=== PATIENT | female | born 1995 | race Caucasian/White ===

== ENCOUNTER → 2019-04-02 | Outpatient (CLI) | payer OTHER ==
--- NOTE | 2019-04-02 15:07 | Diagnostic Imaging Report ---
INDICATION: Anatomy survey. TECHNIQUE: Multiple real-time grayscale images were obtained over the gravid uterus. COMPARISON: None. FINDINGS: Single live intrauterine in the cephalic presentation. Placenta is posteriorly located and there are no features of previa. Due to advanced gestational age, the maternal adnexa are suboptimally visualized. Cervix is closed and measures 3.8 cm in length. anatomy survey shows the following structures to be normal: Stomach, kidneys, urinary bladder, umbilical cord insertion, three-vessel cord, spine, cerebral ventricles, cerebellum, cisterna magna, three-vessel cord, and all four extremities. A four-chamber heart is not well visualized on today's examination due to positioning. Biometrical measurements are as follows: Biparietal 4.49 cm, age 19 weeks 5 days. Head circumference 16.61 cm, age 19 weeks 3 days. Abdominal circumference 13.69 cm, age 19 weeks 1 days. Femur length 2.93 cm, age 19 weeks 1 days. Sonographic estimate age: 19 weeks 3 days. Sonographic estimated date of delivery: 08/24/19. Estimated Weight: 275 gm (+/- 40 gm). LMP percentile: 70%. heart rate: 138 beats per minute. number: 1 of 1. IMPRESSION: 1. Single live intrauterine . 2. anatomy survey is normal with the exception of suboptimal visualization of the four-chamber heart. Consider short-term followup targeted ultrasound to better assess the heart. 3. Gestational age by today's ultrasound is concurrent with gestational age by first ultrasound. Dictated by: Dictated on workstation # [id number]
== END ==
LOC: RAD 10:14
PROVIDERS: ATTEND Obstetrics & Gynecology
DX: Z36.89 Encounter for other specified antenatal screening (principal); Z3A.19 19 weeks gestation of pregnancy
CPT/HCPCS: 76805

== ENCOUNTER 2019-08-19 18:30 | Inpatient (IN) | payer OTHER ==
[2019-08-19] VITALS (7 sets, daily range): BP systolic 100–123; BP diastolic 54–83
[~2019-08-19] VITALS: Ht 162.6 cm; Wt 81.5 kg
--- NOTE | 2019-08-19 18:35 | NUR ---
KOBY RUIZ presented to unit ambulatory from home, accompanied by , for INDUCTION. 38 4/7 wks gestation,Oligohydramnios. KOBY RUIZ weighed, gowned, voided, and to bed. EFHM and TOCO applied, VS taken. KOBY RUIZ oriented to bed controls, call light, TV, heat, and A/C controls. at bedside. call light with in reach.
--- NOTE | 2019-08-19 18:40 | NUR ---
To room 320.
[2019-08-19] MEDS ORDERED: MINERAL OIL CONCENTRATE 99.9% 15 ML UDC TOP PRN (19:30)
[2019-08-19] MEDS ORDERED: NS IV 500 ML 500 ML IV ONE (19:30)
[2019-08-19] MEDS ORDERED: MISOPROSTOL 100 MCG (CYTOTEC) TAB PO ONE (19:30)
[2019-08-19] MEDS: D5 LR IV SOLUTION 1,000 ML IV SCH (19:58)
[2019-08-19 20:12] LABS: BASOPHILS % (AUTO) 0 % (0-10); EOSINOPHILS # (AUTO) 0.1 10^3/uL (0.0-0.3); EOSINOPHILS % (AUTO) 2 % (0-10); HEMATOCRIT 33 % (35-52); HEMOGLOBIN 11.5 G/DL (11.5-16.0); LYMPHOCYTES # (AUTO) 2.2 X 10^3 (1.0-4.0); LYMPHOCYTES % (AUTO) 24 % (12-44); MEAN CORPUSCULAR HEMOGLOBIN 31 PG (25-34); MEAN CORPUSCULAR HGB CONC 34 G/DL (32-36); MEAN CORPUSCULAR VOLUME 90 FL (80-99); MEAN PLATELET VOLUME 10.2 FL (7.4-10.4); MONOCYTES # (AUTO) 0.5 X 10^3 (0.0-1.0); MONOCYTES % (AUTO) 6 % (0-12); NEUTROPHILS # (AUTO) 6.3 X 10^3 (1.8-7.8); NEUTROPHILS % (AUTO) 69 % (42-75); PLATELET COUNT 225 10^3/uL (130-400); RED CELL DISTRIBUTION WIDTH 13.3 % (10.0-14.5); WHITE BLOOD COUNT 9.2 10^3/uL (4.3-11.0)
[2019-08-19] MEDS ORDERED: FLUT9.9S NS (20:18)
[2019-08-19] MEDS ORDERED: FERR-84 PO (20:18)
[2019-08-19] MEDS ORDERED: PREN-53 PO (20:18)
[2019-08-19] MEDS ORDERED: HYDROmorphone 2 MG/ML VIAL (DILAUDID) IV PRN (21:15)
[2019-08-19] MEDS ORDERED: MISOPROSTOL 100 MCG (CYTOTEC) TAB PO SCH (23:30)
[2019-08-20] VITALS (19 sets, daily range): BP systolic 106–145; BP diastolic 59–85
[2019-08-20] MEDS ORDERED: ONDANSETRON 4 MG/2 ML (SDV) Z0FRAN IVP PRN (03:30)
[2019-08-20] MEDS ORDERED: SUFENTA 0.6MCG/ML BUPIVA 0.125 100 ML ONE (03:42)
[2019-08-20] MEDS: D5 LR IV SOLUTION 1,000 ML IV SCH (03:46)
[2019-08-20] MEDS ORDERED: LIDOCAINE/EPI 2% 1:200,00 (XYLOCAINE) 10 ML VIAL ONE (03:59)
[2019-08-20] MEDS ORDERED: OXYTOCIN/NORMAL SALINE 500 ML IV ONE ×2 (03:59→05:01)
[2019-08-20] MEDS: OXYTOCIN/NORMAL SALINE 500 ML IV SCH ×2 (04:25→05:03)
--- NOTE | 2019-08-20 04:52 | History & Physical-OB ---
OB - Chief Complaint & HPI Date/Time Date of Admission: Date of Admission: Aug 19, 2019 at 6:30 pm Date seen by a Provider: Aug 20, 2019 Time Seen by a Provider: 16:45 Chief Complaint/History OB-Reason for Admission/Chief: Induction of Labor Hx : 1 Hx Para: 0 Expected Date of Delivery: Aug 29, 2019 Gestational Age in Weeks: 38 Gestational Age in Days: 4 Admission Nurse Assessment Rev: Yes History of Labs O pos Antibody neg RI RPR NR HBsAg NR HIV NR GC neg GBS neg Other Patient sent up from office for finding of oligohydramnios on US, which was being done for abnormal genetics testing in 1st trimester Allergies and Home Medications Allergies Coded Allergies: Sulfa (Sulfonamide Antibiotics) (Unverified Allergy, Unknown, Itching, 08/19/19) Home Medications Ferrous Sulfate 325 Mg Tablet, 325 MG PO DAILY, (Reported) Fluticasone Propionate 9.9 Ml [place].susp, 1 SPRAY NS DAILY, (Reported) 1 SPRAY EACH NARE DAILY [id number]/Iron Fumarate/FA/Dss 1 Each Tablet, 1 EACH PO DAILY, (Reported) Patient Home Medication List Home Medication List Reviewed: Yes OB - History Hx of Present Care: Yes Ultrasounds: Abnormal US findings (Oligo) Obstetrical Complications: None Medical Complications: None Patient Past Medical History n/a Social History/Family History Recent Infectious Disease Expo: No Alcohol Use: Denies Use Recreational Drug Use: No Immunizations Date of Influenza Vaccine: Aug 07, 2019 OB - Admission Exam Physical Exam Vitals: Vital Signs 08/19/19 08/20/19 20:00 00:30 Temp 36.2 Pulse 74 Resp 16 B/P (MAP) 120/75 (90) Pulse Ox 97 O2 Delivery Room Air HEENT: NCAT Heart: Rhythm Normal Lungs: Clear Abdomen: Gravid Extremities: Normal Reflexes: Normal Cervical Dilatation: 2cm Effacement: 75% Station: 0 Membranes: Intact Heart Rate: 130's Accelerations: Accelerations Present Decelerations: No Decelerations Short Term Variability: Present Fdc Variability: Average (6-25) Contractions on Admission: 6-10 Minutes Apart Intensity: Moderate Labs Laboratory Tests Test 08/19/19 20:05 Range/Units White Blood Count 9.2 4.3-11.0 10^3/uL Red Blood Count 3.70 L 4.35-5.85 10^6/uL Hemoglobin 11.5 11.5-16.0 G/DL Hematocrit 33 L 35-52 % Mean Corpuscular Volume 90 80-99 FL Mean Corpuscular Hemoglobin 31 25-34 PG Mean Corpuscular Hemoglobin Concent 34 32-36 G/DL Red Cell Distribution Width 13.3 10.0-14.5 % Platelet Count 225 130-400 10^3/uL Mean Platelet Volume 10.2 7.4-10.4 FL Neutrophils (%) (Auto) 69 42-75 % Lymphocytes (%) (Auto) 24 12-44 % Monocytes (%) (Auto) 6 0-12 % Eosinophils (%) (Auto) 2 0-10 % Basophils (%) (Auto) 0 0-10 % Neutrophils # (Auto) 6.3 1.8-7.8 X 10^3 Lymphocytes # (Auto) 2.2 1.0-4.0 X 10^3 Monocytes # (Auto) 0.5 0.0-1.0 X 10^3 Eosinophils # (Auto) 0.1 0.0-0.3 10^3/uL Basophils # (Auto) 0.0 0.0-0.1 10^3/uL OB - Assessment/Plan/Diagnosis Assessment Assessment: induction of labor Admission Dx 23 yo @ 38.4 weeks Oligohydramnios GBS neg Abnormal FFC DNA testing- normal amnio Admission Status: Inpatient Order (span 2 midnights) Reason for Inpatient Admission: Induction of labor at term Plan Plan: Induction Induction Method: per Misoprostol Protocol JESSICA JEONG DO Aug 20, 2019 4:52 am POS
--- NOTE | 2019-08-20 04:56 | OB Labor & Delivery Record ---
L&D History Date of Service Date of Service: Aug 20, 2019 History Expected Date of Delivery: Aug 29, 2019 Gestational Age in Weeks: 38 Hx : 1 Hx Para: 0 Complications Events: Routine care Operative Indications (Cesarea: N/A-Vaginal Delivery Intrapartal Events: None L&D Stage1 Stage One Onset of Labor - Date: Aug 20, 2019 Monitors and Tracing Monitor Mode: External Heart Rate: 125 Station: -1 Vital Signs VS - Last 72 Hours, by Label POS 08/19/19 08/19/19 08/19/19 08/19/19 18:50 20:00 20:00 20:15 Temp 36.9 36.9 36.7 Pulse 86 97 88 Resp 18 16 16 B/P (MAP) 121/67 (85) 118/83 (95) Pulse Ox 97 97 O2 Delivery Room Air Room Air Room Air Room Air 08/19/19 08/19/19 08/19/19 08/19/19 20:30 21:30 22:30 23:30 Pulse 75 73 64 66 Resp 16 16 16 16 B/P (MAP) 123/75 (91) 123/74 (90) 107/54 (71) 100/55 (70) O2 Delivery Room Air Room Air Room Air Room Air 08/20/19 00:30 Temp 36.2 Pulse 74 Resp 16 B/P (MAP) 120/75 (90) O2 Delivery Room Air Rupture of Membranes Spontaneous Ruture of Membrane: Yes Amniotic Membrane Rupture Time: 03:45 Vaginal Bleeding Description: Normal Show Progress/Notes Patient given 1 x dose of misoprostol 100 mcg PO at admission, and began reba fairly regularly after that. She became acutely more uncomfortable, and progressed rapidly to complete and +3 station without any analgesia L&D Stage2 Stage Two Stage II Date: Aug 20, 2019 Monitors and Tracing Monitor Mode: External Heart Rate: 125 Monitor Accelerations: Uniform Monitor Decelerations: Variable [facility] Variability: Average (6-10) Short Term Variability: Present Position: Right Occiput Anterior Presentation: Vertex Cord Descript/Complications Cord Vessel Description: 3 Vessels Complications nuchal cord x 1 reduced Delivery Type Infant Delivery Method: Spontaneous Vaginal Anterior Shoulder: Right Episiotomy/Perineal Laceration Laceraction(s)/Extensions: Yes Episiotomy Description: Right Mediolateral Location Modifier: Left, Right Degree (describe repair) RML and left labial laceration repaired using 3-0 and 2-0 vicryl suture Condition of Infant Delivery 1 minute Comment: 8 5 minute Comment: 9 Notes Live female infant weight 6lbs 14 oz Condition of Infant Condition of Infant: Living Exam: No Observed Abnormalities Resuscitation Resuscitation: N/A - Spontaneous Resp L&D Stage3 Stage Three Stage III Date: Aug 20, 2019 Pictocin Pitocin Administration Comment: 30 mu wide open at delivery of placenta Placenta Delivery Placenta Delivery: Spontaneous Delivery Summary Summary Estimated blood loss (mL): 350 Attending at delivery: Jignesh Jeong DO Condition of Delivery Examined: Cervix Examined, Uterus Explored Post Hemorrhage: No Condition of Mother stable Condition of (s) stable JIGNESH JEONG DO Aug 20, 2019 4:56 am POS
--- NOTE | 2019-08-20 04:57 | Discharge Inst-Women's Service ---
Discharge Inst-Women's Serv Depart Medication/Instructions New, Converted or Re-Newed RX: RX on Chart Problems Reviewed?: Yes Consults/Follow Up Additional Follow Up: Yes Orders/Referrals Dr. Jeong in 6 weeks Activity Activity: Activity as Tolerated Driving Instructions: No Driving for 1 Week NO SMOKING: NO SMOKING Nothing Inside Vagina: No Douching, No Numa, No Tampons Diet Discharge Diet: No Restrictions Symptoms to Report to : Bleeding Excessive, Pain Increased, Fever Over 101 Degrees F, Vaginal Bleeding Increase, Questions/Concerns For Any Problems or Questions: Contact Your Physician JESSICA JEONG DO Aug 20, 2019 4:57 am POS
[2019-08-20] MEDS ORDERED: ACHD5005 PO (04:59)
[2019-08-20] MEDS ORDERED: DOCU100C37 PO (04:59)
[2019-08-20] MEDS ORDERED: DIBU30OI TOP (04:59)
[2019-08-20] MEDS ORDERED: Benzocaine/Menthol TP (04:59)
[2019-08-20] MEDS ORDERED: IBUP-844 PO (04:59)
[2019-08-20] MEDS ORDERED: MEASLES,MUMPS,RUBELLA 1 EA INJ SQ ONE (05:00)
[2019-08-20] MEDS ORDERED: DIBUCAINE (NUPERCAINAL) 1% OINT 30 GM TOP PRN (05:00)
[2019-08-20] MEDS ORDERED: TETANUS,DIPTH,PERTUSS P/F (BOOSTRIX) 0.5 ML VIAL IM ONE (05:00)
[2019-08-20] MEDS ORDERED: WITCH HAZEL(TUCKS) 40 EA JAR TOP PRN (05:00)
[2019-08-20] MEDS ORDERED: BENZOCAINE/MENTHOL (DERMOPLAST) 56 ML CAN TP PRN (05:00)
[2019-08-20] MEDS ORDERED: BENZOCAINE/MENTHOL (DERMOPLAST) 56 ML CAN TP ONE (05:55)
[2019-08-20] MEDS ORDERED: IBUPROFEN 600 MG (MOTRIN) TAB PO ONE (05:55)
[2019-08-20] MEDS: IBUPROFEN 600 MG (MOTRIN) TAB PO SCH ×4 (06:00→23:52)
[2019-08-20] MEDS ORDERED: CATHETER FLUSH 10 ML SYR IV SCH (06:00)
[2019-08-20] MEDS ORDERED: LIDOCAINE/EPI 2% 1:200,00 (XYLOCAINE) 10 ML VIAL INJ ONE (06:15)
--- NOTE | 2019-08-20 06:20 | NUR ---
Pt. ambulated to bathroom with standby assist without difficulty. Positive void noted. Tucks and dermoplast provided for comfort. Will move to PP room 310 soon.
--- NOTE | 2019-08-20 06:35 | NUR ---
Pt. transferred to PP room 310 via wheelchair, accompanied by and infant. Pt. oriented to room, room service, call light, and thermostat. folder given and explained. No questions or concerns voiced at this time.
[2019-08-20] MEDS: PRENATAL VITAMIN 1 EA TAB PO SCH (08:45)
[2019-08-20] MEDS: FERROUS SULF 325 MG (IRON) TAB PO SCH (08:45)
[2019-08-20] MEDS: DOCUSATE SODIUM 100 MG (COLACE) CAP PO SCH ×2 (08:45→19:33)
--- NOTE | 2019-08-20 08:50 | NUR ---
PT IN BED, S/O AND FAMILY AT THE BEDSIDE. MEDS GIVEN PO; SEE EMAR FOR FURTHER. VS OBTAINED. INITIAL SHIFT ASSESSMENT COMPLETED; SEE INTERVENTION FOR FURTHER. FRESH ICE WATER PROVIDED. PT DENIES ANY NEEDS OR QUESTIONS AT THIS TIME. CALL LIGHT WITHIN REACH.
[2019-08-20] MEDS: HYDROcodone/APAP 5 MG/325 MG (LORTAB) TAB PO PRN ×2 (10:02→15:24)
[2019-08-21] MEDS: IBUPROFEN 600 MG (MOTRIN) TAB PO SCH ×2 (05:36→11:59)
[2019-08-21 05:39] VITALS: BP 107/67
[2019-08-21 06:44] LABS: BASOPHILS % (AUTO) 0 % (0-10); EOSINOPHILS # (AUTO) 0.1 10^3/uL (0.0-0.3); EOSINOPHILS % (AUTO) 2 % (0-10); HEMATOCRIT 30 % (35-52); HEMOGLOBIN 9.9 G/DL (11.5-16.0); LYMPHOCYTES # (AUTO) 2.5 X 10^3 (1.0-4.0); LYMPHOCYTES % (AUTO) 26 % (12-44); MEAN CORPUSCULAR HEMOGLOBIN 30 PG (25-34); MEAN CORPUSCULAR HGB CONC 33 G/DL (32-36); MEAN CORPUSCULAR VOLUME 91 FL (80-99); MEAN PLATELET VOLUME 10.7 FL (7.4-10.4); MONOCYTES # (AUTO) 0.2 X 10^3 (0.0-1.0); MONOCYTES % (AUTO) 2 % (0-12); NEUTROPHILS # (AUTO) 6.8 X 10^3 (1.8-7.8); NEUTROPHILS % (AUTO) 71 % (42-75); PLATELET COUNT 188 10^3/uL (130-400); RED CELL DISTRIBUTION WIDTH 13.6 % (10.0-14.5); WHITE BLOOD COUNT 9.6 10^3/uL (4.3-11.0)
--- NOTE | 2019-08-21 08:01 | Postpartum Progress Note ---
Note Note Day # 1 Subjective: Patient is without complaints. Ambulating, voiding. Tolerating a regular diet without nausea or vomiting. Normal lochia. Pain is well controlled with oral pain medications. Objective: Physical Exam: General - Alert and oriented, no apparent distress Abdomen - Soft, appropriately tender to palpation, non-distended, fundus firm at umbilicus Extremities - no edema, negative Yang's bilaterally Assessment: PPD 1 NVD Acute blood loss anemia Plan: Routine care. Encourage breast feeding. Encourage ambulation. Ferrous sulfate supplementation. Plan for discharge today Vitals - Labs Vital Signs - I&O Vital Signs Date Time Temp Pulse Resp B/P (MAP) Pulse Ox O2 Delivery O2 Flow Rate FiO2 08/21/19 05:39 36.6 66 18 107/67 (80) 100 Room Air 08/20/19 23:56 36.3 70 18 129/61 (83) 99 Room Air 08/20/19 19:59 36.7 76 18 107/59 (75) 99 Room Air 08/20/19 16:40 37.2 82 18 124/60 (81) 98 Room Air 08/20/19 12:11 36.8 77 18 112/68 (83) 99 Room Air 08/20/19 08:48 36.6 72 18 109/70 (83) 99 Room Air Labs Laboratory Tests 08/21/19 06:34: White Blood Count 9.6, Red Blood Count 3.29L, Hemoglobin 9.9L, Hematocrit 30L, Mean Corpuscular Volume 91, Mean Corpuscular Hemoglobin 30, Mean Corpuscular Hemoglobin Concent 33, Red Cell Distribution Width 13.6, Platelet Count 188, Mean Platelet Volume 10.7H, Neutrophils (%) (Auto) 71, Lymphocytes (%) (Auto) 26, Monocytes (%) (Auto) 2, Eosinophils (%) (Auto) 2, Basophils (%) (Auto) 0, Neutrophils # (Auto) 6.8, Lymphocytes # (Auto) 2.5, Monocytes # (Auto) 0.2, Eosinophils # (Auto) 0.1, Basophils # (Auto) 0.0 JESSICA JEONG DO Aug 21, 2019 08:00 POS
[2019-08-21 09:00] VITALS: BP 119/56
--- NOTE | 2019-08-21 09:00 | NUR ---
A.M. ASSESSMENT COMPLETED. VSS. PLANNING TO GO HOME TODAY.
[2019-08-21] MEDS: FERROUS SULF 325 MG (IRON) TAB PO SCH (09:34)
[2019-08-21] MEDS: PRENATAL VITAMIN 1 EA TAB PO SCH (09:34)
[2019-08-21] MEDS: DOCUSATE SODIUM 100 MG (COLACE) CAP PO SCH (09:34)
--- NOTE | 2019-08-21 10:30 | NUR ---
CARING FOR INFANT IN ROOM. GOOD INTERACTION NOTED.
--- NOTE | 2019-08-21 12:15 | NUR ---
DISCHARGE INSTRUCTIONS REVIEWED WITH COPY TO PT. STATES UNDERSTANDING OF ALL INSTRUCTIONS AND NEED TO F/U SCHEDULED AND NEEDED.
[2019-08-21 12:25] VITALS: BP 119/56
--- NOTE | 2019-08-21 12:25 | NUR ---
DISMISSED AMB FROM [facility] WITH IN STABLE CONDITION TO FAMILY CAR ACC BY S.O. AND OTHER FAMILY MEMBER.
== END 2019-08-21 12:25 | disposition home or self-care (01) | DRG 807 ==
LOC: LDRP 18:30
PROVIDERS: ADMIT Obstetrics & Gynecology; ATTEND Obstetrics & Gynecology
PROC: 10E0XZZ Delivery of Products of Conception, External Approach (ICD-10-PCS; principal; 2019-08-20)
PROC: 0W8NXZZ Division of Female Perineum, External Approach (ICD-10-PCS; 2019-08-20)
PROC: 0UQMXZZ Repair Vulva, External Approach (ICD-10-PCS; 2019-08-20)
DX: O41.03X0 Oligohydramnios, third trimester, not applicable or unspecified (principal); Z37.0 Single live birth; O69.81X0 Labor and delivery complicated by cord around neck, without compression, not applicable or unspecified; O70.0 First degree perineal laceration during delivery; Z3A.38 38 weeks gestation of pregnancy; Z28.21 Immunization not carried out because of patient refusal
CPT/HCPCS: 36415; 85025; 86850; 86900; 86901

== ENCOUNTER → 2020-05-27 | Outpatient (CLI) | payer OTHER ==
[~2020-05-27] MED LIST: ACHD5005 PO; Benzocaine/Menthol TP; DIBU30OI TOP; DOCU100C37 PO; FERR-84 PO; FLUT9.9S NS; IBUP-844 PO; PREN-53 PO
--- NOTE | 2020-05-27 15:16 | Diagnostic Imaging Report ---
INDICATION: survey. TECHNIQUE: Multiple real-time grayscale images were obtained over the gravid uterus. COMPARISON: None. FINDINGS: There is a single live fetus in a transverse presentation, head to the maternal right. heart rate was recorded at 161 BPM. Placenta is posterior. No previa is detected. Amniotic fluid volume appears normal. Cervical length is 4.3 cm. survey demonstrates kidneys, bladder, and stomach to be unremarkable. brain is unremarkable. There is a three-vessel cord with normal insertion. The four-chamber heart view and spine are limited in evaluation due to position. Biometrical measurements are as follows: Biparietal 4.54 cm, age 19 weeks 6 days. Head circumference 16.87 cm, age 19 weeks 4 days. Abdominal circumference 15.15 cm, age 20 weeks 3 days. Femur length 3.35 cm, age 20 weeks 4 days. Sonographic estimate age: 20 weeks 1 days. Sonographic estimated date of delivery: 10/13/2020. Estimated Weight: 346 gm (+/- 51 gm). LMP percentile: 64%. heart rate: 161 beats per minute. number: 1 of 1. IMPRESSION: 1. Single live IUP of 20 weeks 1 day gestational age. Estimated date of confinement sonographically is 10/13/2020. 2. survey is unremarkable, although the four-chamber heart view and spine are limited in evaluation due to position. Dictated by: Dictated on workstation # [id number]
== END ==
LOC: RAD 11:53
PROVIDERS: ATTEND Obstetrics & Gynecology
DX: Z34.92 Encounter for supervision of normal pregnancy, unspecified, second trimester (principal); Z3A.20 20 weeks gestation of pregnancy
CPT/HCPCS: 76805

== ENCOUNTER 2020-10-06 03:05 | Inpatient (IN) | payer OTHER ==
[~2020-10-06] VITALS: Ht 162.6 cm; Wt 83.9 kg
[2020-10-06] VITALS (38 sets, daily range): BP systolic 66–140; BP diastolic 29–87
--- NOTE | 2020-10-06 03:13 | NUR ---
KOBY RUIZ presented to unit via w/c from ED, accompanied by brewery technician & SO, with c/o CONTRACTIONS,FLUID LEAKAGE. KOBY RUIZ weighed, gowned, voided, and to bed. EFHM and TOCO applied, VS taken. KOBY RUIZ oriented to bed controls, call light, TV, heat, and A/C controls.
[2020-10-06] MEDS ORDERED: D5 LR IV SOLUTION 1,000 ML IV SCH (03:45)
[2020-10-06 04:20] LABS: BASOPHILS % (AUTO) 0 % (0-10); EOSINOPHILS # (AUTO) 0.1 10^3/uL (0.0-0.3); EOSINOPHILS % (AUTO) 1 % (0-10); HEMATOCRIT 35 % (35-52); HEMOGLOBIN 11.9 g/dL (11.5-16.0); LYMPHOCYTES # (AUTO) 2.2 10^3/uL (1.0-4.0); LYMPHOCYTES % (AUTO) 20 % (12-44); MEAN CORPUSCULAR HEMOGLOBIN 31 pg (25-34); MEAN CORPUSCULAR HGB CONC 34 g/dL (32-36); MEAN CORPUSCULAR VOLUME 92 fL (80-99); MEAN PLATELET VOLUME 11.1 fL (9.0-12.2); MONOCYTES # (AUTO) 0.5 10^3/uL (0.0-1.0); MONOCYTES % (AUTO) 5 % (0-12); NEUTROPHILS # (AUTO) 8.4 10^3/uL (1.8-7.8); NEUTROPHILS % (AUTO) 74 % (42-75); PLATELET COUNT 185 10^3/uL (130-400); WHITE BLOOD COUNT 11.3 10^3/uL (4.3-11.0)
[2020-10-06] MEDS ORDERED: CETI10CA PO (04:29)
[2020-10-06] MEDS ORDERED: LACTATED RINGERS 1,000 ML IV ONE (04:30)
[2020-10-06] MEDS ORDERED: fentaNYL 2 mcg/ml BUPIVA 0.125 100 ML ONE (04:31)
[2020-10-06] MEDS ORDERED: BUPIVACAINE 0.25% 30 ML (SENSORCAINE) VIAL ONE (05:12)
[2020-10-06] MEDS ORDERED: LIDOCAINE PF 2% 5 ML (XYLOCAINE) VIAL ONE (05:12)
[2020-10-06] MEDS ORDERED: fentaNYL INJECTION 100 MCG/2 ML AMP ONE (05:12)
[2020-10-06] MEDS ORDERED: NALOXONE 0.4 MG/ML 1 ML (NARCAN) VIAL IV PRN (05:45)
[2020-10-06] MEDS ORDERED: ONDANSETRON 4 MG/2 ML (SDV) Z0FRAN IV PRN (05:45)
[2020-10-06] MEDS ORDERED: LACTATED RINGERS 1,000 ML IV SCH (05:45)
[2020-10-06] MEDS ORDERED: EPIDURAL (fentaNYL 2 MCG/ML BUPIVA 0.125%)100 ML BAG EPI PRN (05:45)
[2020-10-06] MEDS ORDERED: diphenhydrAMINE 50 MG/ML INJ (BENADRYL) IV PRN (05:45)
[2020-10-06] MEDS ORDERED: OXYTOCIN PRE-MIX DRIP 500 ML IV SCH (07:45)
[2020-10-06] MEDS ORDERED: OXYTOCIN PRE-MIX DRIP 500 ML IV ONE (07:46)
--- NOTE | 2020-10-06 08:15 | History & Physical-OB ---
OB - Chief Complaint & HPI Date/Time Date of Admission: Date of Admission: Oct 06, 2020 at 03:30 Date seen by a Provider: Oct 06, 2020 Time Seen by a Provider: 07:45 Chief Complaint/History Hx : 2 Hx Para: 1 Expected Date of Delivery: Oct 14, 2020 Gestational Age in Weeks: 38 Gestational Age in Days: 6 Admission Nurse Assessment Rev: Yes Allergies and Home Medications Allergies Coded Allergies: Sulfa (Sulfonamide Antibiotics) (Unverified Allergy, Unknown, Itching, 08/19/19) Home Medications Cetirizine HCl 10 Mg Capsule, 10 MG PO DAILY, (Reported) Ferrous Sulfate 325 Mg Tablet, 325 MG PO DAILY, (Reported) [id number]/Iron Fumarate/FA/Dss 1 Each Tablet, 1 EACH PO DAILY, (Reported) Patient Home Medication List Home Medication List Reviewed: Yes OB - History Hx of Present Care: Yes Ultrasounds: Normal mid trimester US Obstetrical Complications: None Medical Complications: None Patient Past Medical History n/a Social History/Family History Recent Infectious Disease Expo: No Alcohol Use: Denies Use Recreational Drug Use: No Immunizations Date of Influenza Vaccine: Jul 29, 2020 OB - Admission Exam Physical Exam Vitals: Vital Signs 10/06/20 06:50 Pulse 98 Resp 18 B/P (MAP) 113/63 (80) Pulse Ox 99 O2 Delivery Room Air HEENT: NCAT Heart: Rhythm Normal Lungs: Clear Abdomen: Non tender Extremities: Normal Reflexes: Normal Cervical Dilatation: 4cm Effacement: 75% Station: -1 Membranes: Intact Heart Rate: 130's Accelerations: Accelerations Present Decelerations: No Decelerations Short Term Variability: Present Footwear Sales Representative Variability: Average (6-25) Contractions on Admission: < 5 Minutes Apart Intensity: Moderate Labs Laboratory Tests Test 10/06/20 04:00 10/06/20 04:30 Range/Units White Blood Count 11.3 H 4.3-11.0 10^3/uL Red Blood Count 3.84 3.80-5.11 10^6/uL Hemoglobin 11.9 11.5-16.0 g/dL Hematocrit 35 35-52 % Mean Corpuscular Volume 92 80-99 fL Mean Corpuscular Hemoglobin 31 25-34 pg Mean Corpuscular Hemoglobin Concent 34 32-36 g/dL Red Cell Distribution Width 13.3 10.0-14.5 % Platelet Count 185 130-400 10^3/uL Mean Platelet Volume 11.1 9.0-12.2 fL Immature Granulocyte % (Auto) 1 % Neutrophils (%) (Auto) 74 42-75 % Lymphocytes (%) (Auto) 20 12-44 % Monocytes (%) (Auto) 5 0-12 % Eosinophils (%) (Auto) 1 0-10 % Basophils (%) (Auto) 0 0-10 % Neutrophils # (Auto) 8.4 H 1.8-7.8 10^3/uL Lymphocytes # (Auto) 2.2 1.0-4.0 10^3/uL Monocytes # (Auto) 0.5 0.0-1.0 10^3/uL Eosinophils # (Auto) 0.1 0.0-0.3 10^3/uL Basophils # (Auto) 0.0 0.0-0.1 10^3/uL Immature Granulocyte # (Auto) 0.1 0.0-0.1 10^3/uL OB - Assessment/Plan/Diagnosis Assessment Assessment: active labor Admission Dx 24 yo @ 38 weeks Active labor GBS neg Admission Status: Inpatient Order (span 2 midnights) Reason for Inpatient Admission: Active labor at term Plan Plan: Expectant Management JESSICA JEONG DO Oct 06, 2020 08:15
[2020-10-06] MEDS ORDERED: LIDOCAINE/EPI 2% 1:200,00 (XYLOCAINE) 10 ML VIAL ONE (09:06)
[2020-10-06] MEDS: OXYTOCIN PRE-MIX DRIP 500 ML IV SCH ×2 (09:58→11:03)
[2020-10-06] MEDS ORDERED: BENZOCAINE/MENTHOL (DERMOPLAST) 60 ML CAN TP PRN (11:00)
[2020-10-06] MEDS ORDERED: HYDROcodone/APAP 5 MG/325 MG (LORTAB) TAB PO PRN (11:00)
[2020-10-06] MEDS ORDERED: MEASLES,MUMPS,RUBELLA 1 EA INJ SQ ONE (11:00)
[2020-10-06] MEDS ORDERED: TETANUS,DIPTH,PERTUSS P/F (BOOSTRIX) 0.5 ML VIAL IM ONE (11:00)
[2020-10-06] MEDS ORDERED: DIBUCAINE (NUPERCAINAL) 1% OINT 30 GM TOP PRN (11:00)
[2020-10-06] MEDS ORDERED: WITCH HAZEL(TUCKS) 40 EA JAR TOP PRN (11:00)
[2020-10-06] MEDS: IBUPROFEN 600 MG (MOTRIN) TAB PO SCH ×2 (11:27→17:50)
--- NOTE | 2020-10-06 13:36 | OB Labor & Delivery Record ---
L&D History Date of Service Date of Service: Oct 06, 2020 History Expected Date of Delivery: Oct 14, 2020 Gestational Age in Weeks: 38 Hx : 2 Hx Para: 1 Complications Events: Routine care Operative Indications (Cesarea: N/A-Vaginal Delivery Intrapartal Events: None L&D Stage1 Stage One Onset of Labor - Date: Oct 06, 2020 Monitors and Tracing Monitor Mode: External Heart Rate: 130 Monitor Accelerations: Uniform Monitor Decelerations: None Station: +1 Fur Floor Worker Variability: Average (6-10) Short Term Variability: Present Presentation: Vertex Vital Signs VS - Last 72 Hours, by Label 10/06/20 10/06/20 10/06/20 10/06/20 03:22 03:22 03:39 04:10 Temp 36.7 36.7 Pulse 87 87 96 101 Resp 18 18 18 18 B/P (MAP) 140/87 (104) 115/55 (75) 114/55 (74) Pulse Ox 99 99 O2 Delivery Room Air Room Air Room Air Room Air 10/06/20 10/06/20 10/06/20 10/06/20 05:16 05:22 05:27 05:32 Pulse 104 90 96 86 Resp 18 18 18 18 B/P (MAP) 129/67 (87) 125/66 (85) 139/74 (95) 119/57 (77) Pulse Ox 99 100 100 98 O2 Delivery Room Air Room Air Room Air Room Air 10/06/20 10/06/20 10/06/20 10/06/20 05:36 05:46 05:47 05:52 Pulse 88 90 100 100 Resp 18 18 18 18 B/P (MAP) 106/50 (68) 103/52 (69) 90/49 (63) 91/48 (62) Pulse Ox 98 98 98 96 O2 Delivery Room Air Room Air Room Air Room Air 10/06/20 10/06/20 10/06/20 10/06/20 05:54 05:56 06:02 06:09 Pulse 93 90 110 82 Resp 18 18 18 18 B/P (MAP) 66/29 (41) 108/71 (83) 104/58 (73) 123/59 (80) Pulse Ox 96 96 99 99 O2 Delivery Room Air Room Air Room Air Room Air 12/3010/06/20 10/06/20 10/06/20 06:14 06:20 06:35 06:50 Pulse 86 90 88 98 Resp 18 18 18 18 B/P (MAP) 113/58 (76) 117/59 (78) 99/54 (69) 113/63 (80) Pulse Ox 99 99 99 99 O2 Delivery Room Air Room Air Room Air Room Air 10/06/20 10/06/20 10/06/20 10/06/20 07:10 07:20 07:35 07:50 Temp 36.6 Pulse 86 109 98 114 Resp 18 18 18 18 B/P (MAP) 120/59 (79) 109/68 (82) 120/66 (84) 108/59 (75) Pulse Ox 99 99 O2 Delivery Room Air Room Air Room Air Room Air 10/06/20 10/06/20 10/06/20 10/06/20 08:35 08:50 09:05 09:20 Pulse 97 91 96 93 Resp 18 18 18 18 B/P (MAP) 119/61 (80) 118/58 (78) 127/73 (91) 135/71 (92) O2 Delivery Room Air Room Air Room Air Room Air 10/06/20 10/06/20 10/06/20 10/06/20 09:51 10:05 10:20 10:35 Temp 36.8 Pulse 93 88 90 88 Resp 18 18 18 18 B/P (MAP) 111/57 (75) 108/58 (75) 110/58 (75) 117/60 (79) O2 Delivery Room Air Room Air Room Air Room Air 10/06/20 10/06/20 10/06/20 10/06/20 10:50 11:05 11:20 11:28 Temp 36.6 Pulse 91 83 82 91 Resp 18 18 18 18 B/P (MAP) 111/53 (72) 100/53 (69) 98/52 (67) 111/65 (80) O2 Delivery Room Air Room Air Room Air Room Air Rupture of Membranes Spontaneous Ruture of Membrane: No Amniotic Membrane Rupture Time: 734 Amniotic Membrane Fluid Desc.: Clear Vaginal Bleeding Description: Normal Show Induction/Anesthesia Epidural Cath Placement - Time: 528 Progress/Notes Patient presented in active labor, AROM performed. She progressed to complete and +2 station with low dose 4 mu pitocin. L&D Stage2 Stage Two Stage II Date: Oct 06, 2020 Monitors and Tracing Monitor Mode: External Heart Rate: 130 Monitor Accelerations: Uniform Monitor Decelerations: None Fur Floor Worker Variability: Average (6-10) Short Term Variability: Present Position: Right Occiput Anterior Presentation: Vertex Cord Descript/Complications Cord Vessel Description: 3 Vessels Delivery Type Delivery Method: Spontaneous Vaginal Anterior Shoulder: Left Episiotomy/Perineal Laceration Laceraction(s)/Extensions: Yes Episiotomy Description: Perineal Extension/lac Degree (describe repair) 1st degree perineal laceration and right periurethral laceration repaired using 3-0 rapide in usual fashion. Condition of Infant Delivery 1 minute Comment: 9 5 minute Comment: 9 Notes live female infant weight pending Condition of Condition of : Living Exam: No Observed Abnormalities Resuscitation Resuscitation: N/A - Spontaneous Resp L&D Stage3 Stage Three Stage III Date: Oct 06, 2020 Pictocin Pitocin Administration Comment: 30 mu wide open at delivery of placenta Placenta Delivery Placenta Delivery: Spontaneous Delivery Summary Summary Estimated blood loss (mL): 350 Attending at delivery: Jessica Jeong DO Condition of Delivery Examined: Cervix Examined, Uterus Explored Post Hemorrhage: No Condition of Mother stable Condition of (s) stable JESSICA JEONG DO Oct 06, 2020 1:36 pm
[2020-10-06] MEDS ORDERED: CATHETER FLUSH 10 ML SYR IV SCH (14:00)
[2020-10-06] MEDS: CATHETER FLUSH 10 ML SYR IV SCH ×2 (19:54→19:56)
[2020-10-06] MEDS: DOCUSATE SODIUM 100 MG (COLACE) CAP PO SCH (21:10)
[2020-10-07 00:09] VITALS: BP 113/58
[2020-10-07] MEDS: IBUPROFEN 600 MG (MOTRIN) TAB PO SCH ×2 (00:09→12:31)
[2020-10-07 04:35] VITALS: BP 116/56
[2020-10-07] MEDS: CATHETER FLUSH 10 ML SYR IV SCH (04:36)
[2020-10-07] MEDS ORDERED: PRENATAL VITAMIN 1 EA TAB PO SCH (07:00)
[2020-10-07 07:06] LABS: BASOPHILS % (AUTO) 0 % (0-10); EOSINOPHILS # (AUTO) 0.1 10^3/uL (0.0-0.3); EOSINOPHILS % (AUTO) 1 % (0-10); HEMATOCRIT 31 % (35-52); HEMOGLOBIN 10.2 g/dL (11.5-16.0); LYMPHOCYTES # (AUTO) 1.9 10^3/uL (1.0-4.0); LYMPHOCYTES % (AUTO) 20 % (12-44); MEAN CORPUSCULAR HEMOGLOBIN 31 pg (25-34); MEAN CORPUSCULAR HGB CONC 33 g/dL (32-36); MEAN CORPUSCULAR VOLUME 94 fL (80-99); MONOCYTES # (AUTO) 0.4 10^3/uL (0.0-1.0); MONOCYTES % (AUTO) 4 % (0-12); NEUTROPHILS # (AUTO) 6.9 10^3/uL (1.8-7.8); NEUTROPHILS % (AUTO) 74 % (42-75); PLATELET COUNT 160 10^3/uL (130-400); WHITE BLOOD COUNT 9.3 10^3/uL (4.3-11.0)
[2020-10-07 07:40] VITALS: BP 114/61
--- NOTE | 2020-10-07 07:41 | Postpartum Progress Note ---
Note Note Day # 1 Subjective: Patient is without complaints. Ambulating, voiding. Tolerating a regular diet without nausea or vomiting. Normal lochia. Pain is well controlled with oral pain medications. Objective: Physical Exam: General - Alert and oriented, no apparent distress Abdomen - Soft, appropriately tender to palpation, non-distended, fundus firm at umbilicus Extremities - no edema, negative Yang's bilaterally Assessment: PPD 1 NVD Acute blood loss anemia Plan: Routine care. Encourage breast feeding. Encourage ambulation. Ferrous sulfate supplementation. Plan for discharge today pending infant release. Vitals - Labs Vital Signs - I&O Vital Signs Date Time Temp Pulse Resp B/P (MAP) Pulse Ox O2 Delivery O2 Flow Rate FiO2 10/07/20 04:35 36.4 71 18 116/56 (76) 98 Room Air 10/07/20 00:09 36.4 66 18 113/58 (76) 98 Room Air 10/06/20 21:10 36.8 72 18 103/52 (69) 98 Room Air 10/06/20 17:52 36.3 77 18 103/66 (78) 98 Room Air 10/06/20 15:09 36.6 83 18 111/57 (75) 97 Room Air 10/06/20 11:28 91 18 111/65 (80) Room Air 10/06/20 11:20 36.6 82 18 98/52 (67) Room Air 10/06/20 11:05 83 18 100/53 (69) Room Air 10/06/20 10:50 91 18 111/53 (72) Room Air 10/06/20 10:35 88 18 117/60 (79) Room Air 10/06/20 10:20 90 18 110/58 (75) Room Air 10/06/20 10:05 88 18 108/58 (75) Room Air 10/06/20 09:51 36.8 93 18 111/57 (75) Room Air 10/06/20 09:20 93 18 135/71 (92) Room Air 10/06/20 09:05 96 18 127/73 (91) Room Air 10/06/20 08:50 91 18 118/58 (78) Room Air 10/06/20 08:35 97 18 119/61 (80) Room Air 10/06/20 07:50 114 18 108/59 (75) Room Air I & O 10/07/20 07:00 Intake Total 1800 ml Balance 1800 ml Labs Laboratory Tests 10/07/20 06:49: White Blood Count 9.3, Red Blood Count 3.34L, Hemoglobin 10.2L, Hematocrit 31L, Mean Corpuscular Volume 94, Mean Corpuscular Hemoglobin 31, Mean Corpuscular Hemoglobin Concent 33, Red Cell Distribution Width 13.6, Platelet Count 160, Mean Platelet Volume 11.0, Immature Granulocyte % (Auto) 0, Neutrophils (%) (Auto) 74, Lymphocytes (%) (Auto) 20, Monocytes (%) (Auto) 4, Eosinophils (%) (Auto) 1, Basophils (%) (Auto) 0, Neutrophils # (Auto) 6.9, Lymphocytes # (Auto) 1.9, Monocytes # (Auto) 0.4, Eosinophils # (Auto) 0.1, Basophils # (Auto) 0.0, Immature Granulocyte # (Auto) 0.0 JESSICA JEONG DO Oct 07, 2020 07:41
[2020-10-07] MEDS ORDERED: IBUP-844 PO (07:45)
[2020-10-07] MEDS ORDERED: ACHD5005 PO (07:45)
[2020-10-07] MEDS ORDERED: BENZ78AE5 TP (07:45)
[2020-10-07] MEDS ORDERED: DCS100C PO (07:45)
[2020-10-07] MEDS ORDERED: DIBU30OI TOP (07:45)
--- NOTE | 2020-10-07 07:47 | Discharge Inst-Women's Service ---
Discharge Inst-Women's Serv Depart Medication/Instructions New, Converted or Re-Newed RX: RX on Chart Final Diagnosis PPD 1 NVD Problems Reviewed?: Yes Consults/Follow Up Additional Follow Up: Yes Orders/Referrals Dr. Jeong in 6 weeks Activity Activity: Activity as Tolerated Driving Instructions: No Driving for 1 Week NO SMOKING: NO SMOKING Nothing Inside Vagina: No Douching, No [place], No Tampons Diet Discharge Diet: No Restrictions Symptoms to Report to : Bleeding Excessive, Pain Increased, Fever Over 101 Degrees F, Vaginal Bleeding Increase, Questions/Concerns For Any Problems or Questions: Contact Your Physician JESSICA JEONG DO Oct 07, 2020 07:47
[2020-10-07] MEDS ORDERED: FERROUS SULF 325 MG (IRON) TAB PO SCH (09:00)
[2020-10-07] MEDS: DOCUSATE SODIUM 100 MG (COLACE) CAP PO SCH (12:31)
--- NOTE | 2020-10-07 15:27 | Anesthesia-Regional Post-Op ---
Regional Patient Condition Mental Status: Alert, Oriented x3 Circulation: Same as Pre-Op Headache: Absent Sensation: Full Recovery Motor Block: Absent Post Op Complications Complications None Follow Up Care/Instructions Patient Instructions None needed. Anesthesia/Patient Condition Patient is doing well, no complaints, stable vital signs, no apparent adverse anesthesia problems. No complications reported per nursing. VALERIE MILLAN CRNA Oct 07, 2020 15:27
--- NOTE | 2020-10-07 16:25 | NUR ---
KOBY RUIZ demonstrates understanding of discharge instructions and accurately returns instructions upon questioning. Copy of Post-Discharge Instructions and Medication Discharge Instructions given to patient. KOBY RUIZ is able to manage continuing needs after discharge. Patients belongings returned to patient. Skin dry and intact; no breakdown noted. Patient discharged from 3309-1 on 10-07-20 at 1625. KOBY RUIZ left floor via ambulation, accompanied by s/o and staff.
== END 2020-10-07 16:25 | disposition home or self-care (01) | DRG 806 ==
LOC: WSo 03:05 → LDRP 03:06 → WSo 03:30 → LDRP 03:30
PROVIDERS: ADMIT Obstetrics & Gynecology; ATTEND Obstetrics & Gynecology
PROC: 10E0XZZ Delivery of Products of Conception, External Approach (ICD-10-PCS; principal; 2020-10-06)
PROC: 0HQ9XZZ Repair Perineum Skin, External Approach (ICD-10-PCS; 2020-10-06)
PROC: 0UQMXZZ Repair Vulva, External Approach (ICD-10-PCS; 2020-10-06)
DX: O70.0 First degree perineal laceration during delivery (principal); D62 Acute posthemorrhagic anemia; Z37.0 Single live birth; O71.82 Other specified trauma to perineum and vulva; O90.81 Anemia of the puerperium; Z20.828 Contact with and (suspected) exposure to other viral communicable diseases; Z3A.38 38 weeks gestation of pregnancy; Z88.2 Allergy status to sulfonamides; Z79.899 Other long term (current) drug therapy
CPT/HCPCS: 36415; 85025; 86850; 86900; 86901; 87635; 99212

== ENCOUNTER → 2022-04-26 | Outpatient (CLI) | payer BC ==
[~2022-04-26] MED LIST changes: +BENZ78AE5 TP; +CETI10CA PO; +DOCU-239 PO
--- NOTE | 2022-04-26 14:15 | Diagnostic Imaging Report ---
INDICATION: survey. TECHNIQUE: Multiple real-time grayscale images were obtained over the gravid uterus. COMPARISON: None FINDINGS: There is a single live fetus in a cephalic presentation. heart rate was recorded at 150 bpm. Placenta is posterior. Amniotic fluid volume is normal. Cervical length is 7.6 cm. kidneys, bladder and stomach are unremarkable. brain is unremarkable. There is a four-chamber heart. There is a three-vessel cord with normal insertion. spine is unremarkable. Biometrical measurements are as follows: Biparietal 4.90 cm, age 20 weeks 6 days. Head circumference 19.38 cm, age 21 weeks 5 days. Abdominal circumference 14.86 cm, age 20 weeks 1 days. Femur length 3.70 cm, age 21 weeks 6 days. Sonographic estimate age: 21 weeks 1 days. Sonographic estimated date of delivery: 09/05/2022. Estimated Weight: 389 gm (+/- 57 gm). LMP percentile: 67%. heart rate: 150 beats per minute. number: 1 of 1. IMPRESSION: Single live IUP of 21 weeks 1 day gestational age. Estimated date of confinement sonographically is 09/05/2022. Dictated by: Dictated on workstation # [id number]
== END ==
LOC: RAD 10:00
PROVIDERS: ATTEND Nurse Practitioner Women's Health
DX: Z34.02 Encounter for supervision of normal first pregnancy, second trimester (principal); Z3A.21 21 weeks gestation of pregnancy
CPT/HCPCS: 76805

== ENCOUNTER 2022-09-06 06:45 | Inpatient (IN) | payer BC ==
[~2022-09-06] VITALS: Ht 162.6 cm; Wt 90.5 kg
[2022-09-06] VITALS (28 sets, daily range): BP systolic 96–152; BP diastolic 54–98
--- OUTSIDE RECORDS SUMMARY | 2022-09-06 06:54 | XMS REPORT | Clinical Summary ---
Author Author [facility] Organization [facility] Address Unknown Phone Unavailable Care Team Providers Care Transitional Kindergarten Teacher Name Role Phone No Pcp, Na PCP Unavailable Source Comments Some departments are not documenting in the electronic medical record. If you d o not see the information that you expected, contact Release of Information in [facility] Health Information Management department at [phone] for further assistan ce in locating additional records.[facility] Allergies Not on File Medications Not on file Active Problems Not on file Social History Date Tobacco Use Types Packs/Day Years Used Smoking Tobacco: Never Assessed Sex Assigned at Date Recorded Not on file Last Filed Vital Signs Not on file Plan of Treatment Health Maintenance Due Date Last Done Comments COVID-19 VACCINE (#1) 04/18/1996 HPV VACCINES (1 - 2-dose 2006 series) HIV SCREENING 2010 DTAP/TDAP VACCINES (1 - 2013 Tdap) HEPATITIS C SCREENING 2013 PHYSICAL (COMPREHENSIVE) 2013 EXAM CERVICAL CANCER SCREENING 2016 DEPRESSION SCREENING 10/08/2021 INFLUENZA VACCINE 05/08/2022 Results Not on filefrom Last 3 Months Insurance Type Payer Benefit Subscriber ID Effective Phone Address Plan / Dates Group HMO CIGNA CIGNA NON [id number] 2018-P [address] PPO/EPO resent [id number] [place] [id number] (Home) LIAN [place] [id number] 1 Care Teams Start Date End Date Transitional Kindergarten Teacher Relationship Specialty 04/08/19 No Pcp, Na PCP - General
[2022-09-06] MEDS ORDERED: D5 LR IV SOLUTION 1,000 ML IV ONE (07:51)
[2022-09-06 07:57] LABS: BASOPHILS % (AUTO) 0 % (0-10); EOSINOPHILS # (AUTO) 0.1 10^3/uL (0.0-0.3); EOSINOPHILS % (AUTO) 1 % (0-10); HEMATOCRIT 35 % (35-52); HEMOGLOBIN 11.6 g/dL (11.5-16.0); LYMPHOCYTES # (AUTO) 1.7 10^3/uL (1.0-4.0); LYMPHOCYTES % (AUTO) 24 % (12-44); MEAN CORPUSCULAR HEMOGLOBIN 30 pg (25-34); MEAN CORPUSCULAR HGB CONC 34 g/dL (32-36); MEAN CORPUSCULAR VOLUME 90 fL (80-99); MEAN PLATELET VOLUME 11.8 fL (9.0-12.2); MONOCYTES # (AUTO) 0.4 10^3/uL (0.0-1.0); MONOCYTES % (AUTO) 5 % (0-12); NEUTROPHILS % (AUTO) 69 % (42-75); PLATELET COUNT 191 10^3/uL (130-400); WHITE BLOOD COUNT 7.2 10^3/uL (4.3-11.0)
[2022-09-06] MEDS ORDERED: D5 LR IV SOLUTION 1,000 ML IV SCH (08:00)
[2022-09-06] MEDS ORDERED: fentaNYL 2 mcg/ml BUPIVA 0.125 100 ML ONE (08:11)
[2022-09-06] MEDS ORDERED: LACTATED RINGERS 1,000 ML IV ONE (08:12)
[2022-09-06] MEDS ORDERED: OXYTOCIN PRE-MIX DRIP 500 ML IV SCH ×2 (08:45→10:45)
[2022-09-06] MEDS ORDERED: BUPIVACAINE 0.25% 30 ML (SENSORCAINE) VIAL ONE ×3 (08:58→11:45)
[2022-09-06] MEDS ORDERED: fentaNYL INJ 100 MCG/2 ML AMP ONE (08:58)
[2022-09-06] MEDS ORDERED: NALOXONE 0.4 MG/ML 1 ML (NARCAN) VIAL IV PRN ×2 (09:15→10:45)
[2022-09-06] MEDS ORDERED: ONDANSETRON 4 MG/2 ML (SDV) Z0FRAN IV PRN (09:15)
[2022-09-06] MEDS ORDERED: LACTATED RINGERS 1,000 ML IV SCH (09:15)
[2022-09-06] MEDS ORDERED: fentaNYL 2 mcg/ml BUPIVA 0.125 100 ML EPI SCH (09:15)
[2022-09-06] MEDS ORDERED: diphenhydrAMINE 50 MG/ML INJ (BENADRYL) IV PRN (09:15)
[2022-09-06] MEDS ORDERED: CITRIC ACID/SOB CIT (BICITRA) 30 ML UDC ONE (10:39)
[2022-09-06] MEDS ORDERED: FAMOTIDINE 20MG/2ML IV (PEPCID) ONE (10:39)
[2022-09-06] MEDS ORDERED: METOCLOPRAMIDE INJ 10 MG/2 ML (REGLAN) ONE (10:39)
[2022-09-06] MEDS ORDERED: ceFAZolin INJECTION 2,000 MG ONE (10:40)
[2022-09-06] MEDS ORDERED: LIDOCAINE PF 2% 5 ML (XYLOCAINE) VIAL ONE ×2 (10:40→10:43)
[2022-09-06] MEDS ORDERED: NS (IVPB) 50 ML ONE (10:41)
--- NOTE | 2022-09-06 10:43 | History & Physical-OB ---
OB - Chief Complaint & HPI Date/Time Date of Admission: Date of Admission: Sep 06, 2022 at 06:45 Date seen by a Provider: Sep 06, 2022 Time Seen by a Provider: 07:30 Chief Complaint/History OB-Reason for Admission/Chief: Induction of Labor Hx : 3 Hx Para: 2 Expected Date of Delivery: Sep 09, 2022 Gestational Age in Weeks: 39 Gestational Age in Days: 4 Admission Nurse Assessment Rev: Yes Allergies and Home Medications Allergies Coded Allergies: Sulfa (Sulfonamide Antibiotics) (Unverified Allergy, Unknown, Itching, 08/19/19) Patient Home Medication List Home Medication List Reviewed: Yes Benzocaine/Menthol (Dermoplast Pain Relieving [place]) 78 Gm Aerosol, 56 ML TP UD PRN for PAIN- SEE INSTRUCTIONS Prescribed by: JESSICA JEONG on 10/07/20744 Cetirizine HCl (Zyrtec) 10 Mg Capsule, 10 MG PO DAILY, (Reported) Entered as Reported by: ROHITH MAYORGA on 10/06/20 0429 Dibucaine (Dibucaine) 30 Gm Oint, 0 GM TOP UD PRN for PAIN- SEE INSTRUCTIONS Prescribed by: JESSICA JEONG on 10/07/20744 Docusate Sodium (Dok) 100 Mg Capsule, 100 MG PO BID PRN for CONSTIPATION-1ST LINE Prescribed by: JESSICA JEONG on 10/07/20744 Ferrous Sulfate (Iron) 325 Mg Tablet, 325 MG PO DAILY, (Reported) Entered as Reported by: KAVIN JOHNSTON on 08/19/192017 Hydrocodone/Acetaminophen (Hydrocodone-Acetamin 5-325 mg) 1 Each Tablet, 1 TAB PO Q4H PRN for PAIN-MODERATE (5-7) Prescribed by: JESSICA JEONG on 10/07/20744 Ibuprofen (Ibu) 600 Mg Tablet, 600 MG PO Q6HR Prescribed by: JESSICA JEONG on 10/07/20744 Lug944/Iron Fumarate/FA/Dss ( 19 Tablet) 1 Each Tablet, 1 EACH PO DAILY, (Reported) Entered as Reported by: KAVIN JOHNSTON on 08/19/192017 OB - History Hx of Present Care: Yes Ultrasounds: Normal mid trimester US Obstetrical Complications: None Medical Complications: None Patient Past Medical History n/a Immunizations Influenza Vaccine Up-to-Date: Yes; Up-to-Date OB - Admission Exam Physical Exam HEENT: NCAT Heart: Rhythm Normal Lungs: Clear Abdomen: Gravid Extremities: Normal Reflexes: Normal Cervical Dilatation: 4cm Effacement: 75% Station: -1 Membranes: Intact Heart Rate: 130's Accelerations: Accelerations Present Decelerations: No Decelerations Short Term Variability: Present Jail Variability: Average (6-25) Contractions on Admission: 6-10 Minutes Apart Intensity: Mild [place] Scoring Tool (Modified) Dilation (cm): 3-4cm (2) Effacement (%): 51-79% (2) Descent/Station: -1,0 (2) Cervix Consistency: Soft (2) Cervix Position: Anterior (2) Add 1 point for: Each previous vaginal delivery (1) [place] Score: 12 Labs Laboratory Tests Test 09/06/22 07:20 Range/Units White Blood Count 7.2 4.3-11.0 10^3/uL Red Blood Count 3.83 3.80-5.11 10^6/uL Hemoglobin 11.6 11.5-16.0 g/dL Hematocrit 35 35-52 % Mean Corpuscular Volume 90 80-99 fL Mean Corpuscular Hemoglobin 30 25-34 pg Mean Corpuscular Hemoglobin Concent 34 32-36 g/dL Red Cell Distribution Width 13.6 10.0-14.5 % Platelet Count 191 130-400 10^3/uL Mean Platelet Volume 11.8 9.0-12.2 fL Immature Granulocyte % (Auto) 0 % Neutrophils (%) (Auto) 69 42-75 % Lymphocytes (%) (Auto) 24 12-44 % Monocytes (%) (Auto) 5 0-12 % Eosinophils (%) (Auto) 1 0-10 % Basophils (%) (Auto) 0 0-10 % Neutrophils # (Auto) 5.0 1.8-7.8 10^3/uL Lymphocytes # (Auto) 1.7 1.0-4.0 10^3/uL Monocytes # (Auto) 0.4 0.0-1.0 10^3/uL Eosinophils # (Auto) 0.1 0.0-0.3 10^3/uL Basophils # (Auto) 0.0 0.0-0.1 10^3/uL Immature Granulocyte # (Auto) 0.0 0.0-0.1 10^3/uL OB - Assessment/Plan/Diagnosis Assessment Assessment: induction of labor Admission Dx 26 yo @ 39 weeks IOL GBS neg Admission Status: Inpatient Order (span 2 midnights) Reason for Inpatient Admission: 39 week IOL Plan Induction Method: AROM Other Plan AROM and epidural after. Patient has history of precipatous delivery. JESSICA JEONG DO Sep 06, 2022 10:43
[2022-09-06] MEDS ORDERED: TETANUS,DIPTH,PERTUSS P/F (BOOSTRIX) 0.5 ML VIAL IM SCH (10:45)
[2022-09-06] MEDS ORDERED: ONDANSETRON 4 MG/2 ML (SDV) Z0FRAN IVP PRN (10:45)
[2022-09-06] MEDS ORDERED: OXYTOCIN PRE-MIX DRIP 500 ML IV ONE (10:45)
[2022-09-06] MEDS ORDERED: MEASLES,MUMPS,RUBELLA 1 EA INJ SC SCH (10:45)
[2022-09-06] MEDS ORDERED: CITRIC ACID/SOB CIT (BICITRA) 30 ML UDC PO ONE ×2 (10:45→11:00)
[2022-09-06] MEDS ORDERED: METOCLOPRAMIDE INJ 10 MG/2 ML (REGLAN) IV ONE ×2 (10:45→11:00)
[2022-09-06] MEDS ORDERED: LACTATED RINGERS 1,000 ML IV PRN ×2 (10:45)
[2022-09-06] MEDS ORDERED: CATHETER FLUSH 10 ML SYR IV PRN (10:45)
--- NOTE | 2022-09-06 10:45 | Progress Note ---
Standard Progress Note Progress Notes/Assess & Plan Date Seen by a Provider: Sep 06, 2022 Time Seen by a Provider: 10:30 Progress/Assessment & Plan Patient had AROM performed and skull sutures were palpated this AM at approx 8am at that time. She had an epidural placed there after and low dose pitocin 2 mu was started. However, patient was rechecked after epidural and breech presentation was suspected. I was contracted to confirm with US, and breech was confirmed. Discussed with patient urgency due to her history of precipatous delivery proceeding with emergent . Risk reviewed and all questions answered. JESSICA JEONG DO Sep 06, 2022 10:45
[2022-09-06] MEDS ORDERED: FAMOTIDINE 20MG/2ML IV (PEPCID) IV ONE (11:00)
[2022-09-06] MEDS ORDERED: ceFAZolin INJECTION 2,000 MG in NS (IVPB) 50 ML IV ONE (11:00)
[2022-09-06] MEDS: KETOROLAC 30 MG/ML VIAL IV SCH ×2 (13:02→19:28)
[2022-09-06] MEDS: HYDROcodone/APAP 5 MG/325 MG (LORTAB) TAB PO PRN ×2 (13:03→19:28)
[2022-09-06] MEDS ORDERED: CATHETER FLUSH 10 ML SYR IV SCH ×2 (14:00)
[2022-09-06] MEDS: DOCUSATE SODIUM 100 MG (COLACE) CAP PO SCH (20:58)
--- NOTE | 2022-09-06 22:05 | OPERATIVE REPORT ---
DATE OF SERVICE: 09/06/2022 PREOPERATIVE DIAGNOSES: 1. A 26-year-old G3, P2 at 39 weeks' gestation. 2. Breech presentation. POSTOPERATIVE DIAGNOSES: 1. A 26-year-old G3, P2 at 39 weeks' gestation. 2. Breech presentation. PROCEDURE: Primary low transverse section. SURGEON: Jignesh Jeong DO ANESTHESIA: Epidural, which was bolused. ESTIMATED BLOOD LOSS: 500 mL URINE OUTPUT: 200 mL clear at the end of the procedure. FLUIDS: 1500 mL lactated of Ringer's solution. FINDINGS: Live male weighing 8 pounds 6 ounces with Apgars of 9 and 9. Grossly normal appearing uterus, bilateral fallopian tubes and ovaries. SPECIMEN SENT: None. INDICATIONS FOR PROCEDURE: This 26-year-old female patient who was brought in for induction of labor this morning. Artificial rupture of membranes was performed and suture line was appreciated on palpation on digital cervical examination; however, after the patient received an epidural, reevaluation of cervical exam found malpresentation and ultrasound confirmed breech presentation conversion. I discussed with the patient proceeding with urgent as she did have a history of precipitous labor. Risks of the procedure were discussed with the patient in detail including risk of bleeding, infection, damage to structures including but not limited to bowel, bladder, ureter or kidney, possible need for reoperation, postoperative complications that may occur, recovery timeframe, blood loss, possible need for blood transfusion, risk from anesthesia and even . After everything was discussed with the patient in detail, consent was obtained. The patient was taken to the operating room. DESCRIPTION OF PROCEDURE: Once in the operating room, epidural analgesia was bolused and found to be adequate. She was placed in supine position with a leftward tilt, prepped and draped in normal sterile fashion. A timeout was performed. Anesthesia was tested. I then made a Pfannenstiel skin incision with a knife and carried down to the fascia using Bovie cautery. The fascial incision extended laterally using Bovie cautery. The superior aspect of the fascial incision was then grasped with Leena clamps and sharply dissected off the rectus muscles. The inferior aspect of the fascial incision was then grasped with Leena clamps, tented up and dissected off the rectus muscles. The rectus muscles were dissected down to the midline using sharp dissection, we exposed the peritoneum was entered bluntly and extended using blunt traction. Scott ring retractor was placed in the peritoneal incision, which offered excellent lateral sidewall retraction identified. The lower uterine segment was found to be thinned out and make a low transverse incision at the vesicouterine peritoneum and bluntly dissected off the lower uterine segment, creating a bladder flap. I then proceeded with my myotomy and the membranes are visualized, at which point I extended the uterine incision laterally and superiorly using bandage scissors. Amniotomy was performed using Allis clamp, clear fluid was noted. The infant was found in the breech presentation where the buttocks were elevated up to the incision, delivered through the incision up to the upper torso where the legs were completely delivered. I then rotated the to be facing downward. I delivered the arms by sweeping them across the chest and then elevated the infant's body and delivered the head by flexion through the incision. Nares and oropharynx were bulb suctioned. Infant was brought to the operative field where the cord was doubly clamped and cut and was handed off to the waiting nurses in attendance. Cord blood was collected. Three-vessel cord intact placenta was delivered spontaneously thereafter. IV Pitocin was initiated to facilitate uterine contraction. Uterine fundus confirmed by manual massage. The uterus was then exteriorized and cleared of all endometrial clots and debris. I then proceeded with closing the uterine incision using 0 Vicryl suture in a running locked fashion. Second layer of imbricated Monocryl was placed. Excellent hemostasis was noted after doing this. I then placed the uterus back in the pelvis and copiously irrigated the pelvis using normal saline. Once again, there was no active bleeding noted from the dissection planes. I placed Interceed antiadhesive over my low transverse incision. I removed the Scott retractor and then proceeded with closing the peritoneum using 3-0 Vicryl suture in a running fashion. The rectus muscle was reapproximated using 3-0 Vicryl suture in interrupted fashion. The fascia was reapproximated using 0 Vicryl suture in a running fashion. The subcutaneous tissue was reapproximated using 3-0 plain in interrupted subcutaneous stitch and the skin reapproximated using 4-0 Monocryl in a running subcuticular. Dermabond was applied to incision. A sterile dressing with adhesive white tape. The patient tolerated the procedure well and was taken to the recovery room in stable condition. Lap and sponge counts were correct at the end of the procedure. Instrument count was correct as well. Two grams of Ancef were given preoperatively for infection prophylaxis. Job ID: [id number] DocumentID: [id number] Dictated Date: 09/06/2022 11:54:39 Boiler Erector Date: 09/06/2022 22:03:00 Dictated By: JIGNESH JEONG DO
[2022-09-07] MEDS: HYDROcodone/APAP 5 MG/325 MG (LORTAB) TAB PO PRN ×4 (00:47→17:40)
[2022-09-07 00:48] VITALS: BP 107/55
[2022-09-07] MEDS: KETOROLAC 30 MG/ML VIAL IV SCH ×2 (00:48→06:07)
[2022-09-07 04:40] VITALS: BP 113/58
[2022-09-07 05:58] LABS: BASOPHILS % (AUTO) 0 % (0-10); EOSINOPHILS # (AUTO) 0.1 10^3/uL (0.0-0.3); EOSINOPHILS % (AUTO) 1 % (0-10); HEMATOCRIT 29 % (35-52); HEMOGLOBIN 9.8 g/dL (11.5-16.0); LYMPHOCYTES % (AUTO) 20 % (12-44); MEAN CORPUSCULAR HEMOGLOBIN 30 pg (25-34); MEAN CORPUSCULAR HGB CONC 33 g/dL (32-36); MEAN CORPUSCULAR VOLUME 91 fL (80-99); MEAN PLATELET VOLUME 11.8 fL (9.0-12.2); MONOCYTES # (AUTO) 0.5 10^3/uL (0.0-1.0); MONOCYTES % (AUTO) 5 % (0-12); NEUTROPHILS # (AUTO) 7.1 10^3/uL (1.8-7.8); NEUTROPHILS % (AUTO) 73 % (42-75); PLATELET COUNT 153 10^3/uL (130-400); WHITE BLOOD COUNT 9.7 10^3/uL (4.3-11.0)
--- NOTE | 2022-09-07 08:35 | Postpartum Progress Note ---
Note Note Day # 1 Subjective: Patient is without complaints. Ambulating, voiding. Tolerating a regular diet without nausea or vomiting. Normal lochia. Pain is well controlled with oral pain medications. Breast feeding Objective: Physical Exam: General - Alert and oriented, no apparent distress Abdomen - Soft, appropriately tender to palpation, non-distended, fundus firm at umbilicus Extremities - no edema, negative Yang's bilaterally Incision- c/d/i Assessment: POD1 PLTCS Breech presentation Acute blood loss anemia Plan: Routine care. Encourage breast feeding. Encourage ambulation. Ferrous sulfate supplementation. Plan for discharge tomorrow Vitals - Labs Vital Signs - I&O Vital Signs Date Time Temp Pulse Resp B/P (MAP) Pulse Ox O2 Delivery O2 Flow Rate FiO2 09/07/22 04:40 35.6 77 18 113/58 (76) 97 Room Air 09/07/22 00:48 36.3 70 18 107/55 (72) 98 Room Air 09/06/22 19:33 36.7 95 18 152/73 (99) 97 Room Air 09/06/22 14:25 18 114/72 (86) Room Air 09/06/22 13:35 36.6 79 18 96/72 (80) 96 Room Air 09/06/22 12:42 36.4 16 111/66 (81) 98 Room Air 09/06/22 12:42 Room Air 09/06/22 12:27 36.5 16 114/98 (103) 98 Room Air 09/06/22 12:27 Room Air 09/06/22 12:13 Room Air 09/06/22 12:12 35.9 16 106/63 (77) 99 Room Air 09/06/22 12:00 Room Air 09/06/22 11:57 35.9 16 141/85 (103) 98 Room Air 09/06/22 10:57 80 18 105/58 (74) 98 Room Air 09/06/22 10:44 93 18 130/65 (86) 100 Room Air 09/06/22 10:27 83 18 126/62 (83) 99 Room Air 09/06/22 10:11 36.5 09/06/22 10:07 83 18 100/62 (75) 97 Room Air 09/06/22 10:02 85 18 104/57 (73) 97 Room Air 09/06/22 09:59 85 18 106/54 (71) 96 Room Air 09/06/22 09:53 81 18 106/63 (77) 97 Room Air 09/06/22 09:47 82 18 113/67 (82) 97 Room Air 09/06/22 09:42 85 18 116/59 (78) Room Air 09/06/22 09:39 83 18 120/60 (80) 97 Room Air 09/06/22 09:37 81 18 119/57 (77) Room Air 09/06/22 09:33 79 18 101/54 (70) 97 Room Air 09/06/22 09:30 91 18 106/56 (73) 98 Room Air 09/06/22 09:27 88 18 116/63 (80) 98 Room Air 09/06/22 09:23 79 18 113/66 (82) 99 Room Air 09/06/22 09:20 85 18 116/72 (87) 98 Room Air 09/06/22 09:17 80 18 119/74 (89) 98 Room Air 09/06/22 09:14 85 18 116/73 (87) 99 Room Air 09/06/22 09:12 87 18 116/72 (87) Room Air 09/06/22 09:09 82 18 139/69 (92) 99 Room Air I & O 09/07/22 07:00 Intake Total 50 ml Output Total 200 ml Balance -150 ml Labs Laboratory Tests 09/07/22 05:22: White Blood Count 9.7, Red Blood Count 3.23L, Hemoglobin 9.8L, Hematocrit 29L, Mean Corpuscular Volume 91, Mean Corpuscular Hemoglobin 30, Mean Corpuscular Hemoglobin Concent 33, Red Cell Distribution Width 13.6, Platelet Count 153, Mean Platelet Volume 11.8, Immature Granulocyte % (Auto) 0, Neutrophils (%) (Auto) 73, Lymphocytes (%) (Auto) 20, Monocytes (%) (Auto) 5, Eosinophils (%) (Auto) 1, Basophils (%) (Auto) 0, Neutrophils # (Auto) 7.1, Lymphocytes # (Auto) 2.0, Monocytes # (Auto) 0.5, Eosinophils # (Auto) 0.1, Basophils # (Auto) 0.0, Immature Granulocyte # (Auto) 0.0 JESSICA JEONG 1, 2022 08:35
--- NOTE | 2022-09-07 08:36 | Discharge Inst-Women's Service ---
Discharge Inst-Women's Serv Depart Medication/Instructions New, Converted or Re-Newed RX: Transmitted to Pharmacy Final Diagnosis POD 2 PLTCS Problems Reviewed?: Yes Consults/Follow Up Additional Follow Up: Yes Orders/Referrals Dr. Slater in 7-10 days and in 6 week Activity Activity: Activity as Tolerated Driving Instructions: No Driving for 1 Week NO SMOKING: NO SMOKING Nothing Inside Vagina: No Douching, No Ashby, No Tampons Diet Discharge Diet: No Restrictions Symptoms to Report to : Bleeding Excessive, Pain Increased, Fever Over 101 Degrees F, Vaginal Bleeding Increase, Questions/Concerns For Any Problems or Questions: Contact Your Physician Skin/Wound Care Infection Signs and Symptoms: Increased Redness, Foul Odor of Wound, Increased Drainage, Skin Itchy or Has a Rash, Increased Swelling, Temperature Above 101 F Operative Area Clean and Dry: Keep Incision Clean/Dry Stitches/Radha/Dermabond: Dermabond, Care of Stitches Bathing Instructions: JESSICA Barillas DO Sep 07, 2022 08:36
[2022-09-07] MEDS ORDERED: IBUP-844 PO (08:37)
[2022-09-07] MEDS ORDERED: DOCU100C37 PO (08:37)
[2022-09-07] MEDS ORDERED: ACHD5005 PO (08:37)
--- NOTE | 2022-09-07 09:57 | Anesthesia-Regional Post-Op ---
Regional Patient Condition Mental Status: Alert, Oriented x3 Circulation: Same as Pre-Op Headache: Absent Sensation: Full Recovery Motor Block: Absent Post Op Complications Complications None Follow Up Care/Instructions Patient Instructions None needed. Anesthesia/Patient Condition Patient is doing well, no complaints, stable vital signs, no apparent adverse anesthesia problems. No complications reported per nursing. JAKOB FAGAN CRNA Sep 07, 2022 09:57
[2022-09-07 10:45] VITALS: BP 112/58
[2022-09-07] MEDS: DOCUSATE SODIUM 100 MG (COLACE) CAP PO SCH ×2 (12:06→20:31)
[2022-09-07] MEDS: IBUPROFEN 600 MG (MOTRIN) TAB PO SCH ×2 (15:13→20:31)
[2022-09-07 15:15] VITALS: BP 107/58
[2022-09-07 20:31] VITALS: BP 120/69
[2022-09-08] MEDS: HYDROcodone/APAP 5 MG/325 MG (LORTAB) TAB PO PRN ×2 (00:13→07:34)
[2022-09-08 03:31] VITALS: BP 117/58
[2022-09-08] MEDS: IBUPROFEN 600 MG (MOTRIN) TAB PO SCH ×2 (03:31→09:22)
[2022-09-08 09:10] VITALS: BP 113/57
[2022-09-08] MEDS: DOCUSATE SODIUM 100 MG (COLACE) CAP PO SCH (09:22)
--- NOTE | 2022-09-08 10:12 | Postpartum Progress Note ---
Note Note Day # 2 Subjective: Patient is without complaints. Ambulating, voiding. Tolerating a regular diet without nausea or vomiting. Normal lochia. Pain is well controlled with oral pain medications. Physical Exam: General - Alert and oriented, no apparent distress Abdomen - Soft, appropriately tender to palpation, non-distended, fundus firm at umbilicus; incision c/d/i Extremities - no edema, negative Yang's bilaterally Assessment: Post- day # 2, status post PLTCS for breech presentation Recovering well, hemodynamically stable Acute blood loss anemia Plan: Routine care. Encourage breast feeding. Encourage ambulation. Ferrous sulfate supplementation. Plan for discharge today Vitals - Labs Vital Signs - I&O Vital Signs Date Time Temp Pulse Resp B/P (MAP) Pulse Ox O2 Delivery O2 Flow Rate FiO2 09/08/22 09:10 36.4 100 20 113/57 (75) 98 Room Air 09/08/22 03:31 36.4 78 18 117/58 (77) 98 Room Air 09/07/22 20:31 36.6 82 18 120/69 (86) 97 Room Air 09/07/22 15:15 36.3 89 18 107/58 (74) 97 Room Air 09/07/22 10:45 36.3 75 18 112/58 (76) 98 Room Air JACQUI CRISTOBAL APRN Sep 08, 2022 10:12
== END 2022-09-08 13:15 | disposition home or self-care (01) | DRG 787 ==
LOC: LDRP 06:45 → WS 12:22
PROVIDERS: ADMIT Obstetrics & Gynecology; ATTEND Obstetrics & Gynecology
PROC: 10D00Z1 Extraction of Products of Conception, Low, Open Approach (ICD-10-PCS; principal; 2022-09-06 11:06)
DX: O32.1XX0 Maternal care for breech presentation, not applicable or unspecified (principal); D62 Acute posthemorrhagic anemia; Z3A.39 39 weeks gestation of pregnancy; Z37.0 Single live birth; O90.81 Anemia of the puerperium
CPT/HCPCS: 36415; 85025; 86780; 86850; 86900; 86901; 94664